=== PATIENT | female | born 1955 | race American Indian/Alaskan Native ===

== ENCOUNTER 2016-12-12 07:31 | Outpatient (CLI) | payer MEDICARE ==
--- NOTE | 2016-12-12 11:39 | Fluoroscopy Report ---
DOUBLE CONTRAST BARIUM ENEMA INDICATION: Rectal polyp. COMPARISON: None similar at this institution. FINDINGS: Preliminary radiograph demonstrates a nonobstructive bowel gas pattern. Lumbar spondylosis and bilateral acetabular spurring. Few pelvic phleboliths. Using fluoroscopic guidance, the entire colon filled in retrograde fashion with barium and air. The colonic caliber and mucosal pattern are normal in appearance. Approximately 5 mm distal transverse colon polyp/diverticulum versus artifact. No other constricting lesions or fixed intraluminal masses identified with few presumed stool artifacts. Few sigmoid and descending colon diverticuli. Reflux identified into the appendix. CONCLUSION: Mild diverticulosis and possible 5 mm distal transverse colon polyp or diverticulum as well; otherwise unremarkable air contrast barium enema. Please correlate with recent colonoscopy findings as well. Thank you for the opportunity to participate in this patient's care.
== END 2016-12-12 07:32 | disposition home or self-care (01) ==
LOC: FLUORO 07:31
PROVIDERS: ATTEND Internal Medicine Gastroenterology
DX: K62.1 Rectal polyp (principal)
CPT/HCPCS: 74280